=== PATIENT | female | born 1985 ===

== ENCOUNTER 2024-12-09 06:00 | Day surgery (SDC) | payer OTHER ==
[2024-12-09] MEDS ORDERED: DIPHENHYDRAMINE HCL 50 MG/ML VIAL 1ML IV ONE (10:30)
[2024-12-09] MEDS ORDERED: fentaNYL CITRATE 50 MCG/ML AMPUL IV ONE (10:30)
[2024-12-09] MEDS ORDERED: MIDAZOLAM HCL 2 MG/2 ML VIAL IV ONE (10:30)
== END 2024-12-09 11:50 | disposition home or self-care (01) ==
LOC: AMB-ENDOS 06:00
PROVIDERS: ATTEND Surgery
DX: D12.2 Benign neoplasm of ascending colon (principal); K63.5 Polyp of colon; Z88.6 Allergy status to analgesic agent